=== PATIENT | female | born 1935 | race Caucasian/White ===

== ENCOUNTER 2021-07-12 20:20 | Emergency (ER) | payer MEDICARE, MEDICAID, SELFPAY ==
--- NOTE | ~2021-07-12 | XR_ITS ---
EXAMINATION: XR chest 1V INDICATION: Wheezing TECHNIQUE: AP view of the chest is obtained. COMPARISON: 05/21/2019 FINDINGS: There is severe emphysema. The lungs are free of acute opacities. There is no pleural effus ion or pneumothorax. The cardiomediastinal silhouette is stable. IMPRESSION: 1. No acute cardiopulmonary abnormality. Reviewed, dictated and finalized at location F. BING ASSEMBLER
--- NOTE | ~2021-07-12 | XR_ITS ---
EXAMINATION: XR sacrum coccyx min 2V INDICATION: Pelvic pain after fall TECHNIQUE: Three views of the sacrum and coccyx are obtained. COMPARISON: 05/21/2019 FINDINGS: The bones are osteopenic which limits the sensitivity for fracture however none is seen. Joey ne alignment is normal. There are phleboliths of the pelvis. 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 Calcified atherosclerosis is noted. IMPRESSION: 1. No fracture identified, sensitivity limited by osteopenia. Reviewed, dictated and finalized at location F. Y POSITION OFFICER
--- NOTE | ~2021-07-12 | CT_ITS ---
EXAMINATION: CT cervical spine wo con DATE: 07/12/2021 20:55 INDICATION: Head injury TECHNIQUE: Computed tomography (CT) of the cervical spine was performed without intravenous contrast. The dose-length product (DLP) was 327.49 mGy-cm. Automated exposure control and iterative reconstruc tion technique were employed. COMPARISON: 05/21/2019 FINDINGS: There is no acute fracture, dislocation, or subluxation. There is moderate loss of interver tebral disc space height at C5-6. The odontoid is intact. The prevertebral soft tissues are normal. T here is mild multilevel facet and uncovertebral joint osteoarthritis. There is a chronic mild abad merritt fracture of C7. There is severe emphysema visualized lung apices. IMPRESSION: 1. Mild cervical spondylosis and chronic mild compression fracture of C7 without acute findings or si gnificant interval change. Reviewed, dictated and finalized at location F. IT BALANCE SPECIALIST IMPRESSION: 1. Mild cervical spondylosis and chronic mild compression fracture of C7 withou t acute findings or significant interval change.
--- NOTE | ~2021-07-12 | CT_ITS ---
EXAMINATION: CT brain wo con INDICATION: Head injury COMPARISON: 05/21/2019 TECHNIQUE: Standard unenhanced head CT. The dose-length product (DLP) was 605.33 mGy-cm. The mA was a djusted according to patient size. Iterative reconstruction technique was employed. FINDINGS: There is no acute intraparenchymal hemorrhage. No evidence of mass lesion. No evidence of a cute infarction. 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 There is moderate periventricular and subcortical hypodensity probably related to small vessel ischemic dis ease. There is mild prominence of the sulci and ventricles related to cerebral atrophy. Intracranial calcified cerebral atherosclerosis is noted. There are no extra-axial collections. There is no mass e ffect or midline shift. Changes in the globes are likely from ocular lens surgery. There is mild muco karine thickening of the paranasal sinuses. IMPRESSION: 1. No acute intracranial abnormality. 2. Age related findings. Reviewed, dictated and finalized at location F. CTOR CORPORATE SECURITY
[2021-07-12 20:31] VITALS: BP 118/78; PULSE 95; RESP 22; TEMP 36.4; O2SAT 93
--- NOTE | 2021-07-12 21:34 | ECG_ITS ---
Measurements Intervals [place] Rate: 87 P: 78 TN: 224 QRS: 63 QRSD: 100 T: 60 QT: 364 QTc: 440 Interpretive Statements SINUS RHYTHM WITH FIRST DEGREE AV BLOCK POSSIBLE LEFT ATRIAL ENLARGEMENT BASELINE ARTIFACT- I, II, III, AVR, AVL, AVF, V1-V6 ABNORMAL ECG Electronically Signed On 07-13-2021 6:30:16 INFANTRY ASSAULTMAN by Thomas Cho D.O.
--- NOTE | 2021-07-12 21:40 | ED.FALL ---
HPI - Fall General Chief Complaint: Fall Stated Complaint: altered mental status after fall Time Seen by Provider: 07/12/21 21:03 Source: patient and RN notes reviewed Mode of arrival: EMS Limitations: no limitations History of Present Illness HPI Narrative: This is an 85 year old female with history of COPD, hypertension who presents for evaluation of fall. Patient states she was getting up out of bed to go to restroom. She was reports she had her hand on bedside table, and the table moved. Once the table moved this caused her to fall down onto her buttocks. She reports she lightly fell back and hit her head. She denies headache, dizziness, nausea or vomiting. She denies neck pain and she has chronic back pain. She reports bilateral buttock pain from her fall. Patient is on oxygen and she reports her doctor placed her on oxygen 2 days ago. She denies chest pain or shortness of breath at this time. Related Data Home Medications Medication Instructions Recorded Confirmed Creon 1 cap PO AC 05/02/19 05/21/19 Spiriva with HandiHaler 1 cap INHALATION DAILY 05/02/19 05/21/19 acetaminophen 650 mg PO Q4H PRN 05/02/19 05/21/19 albuterol sulfate 2.5 mg INHALATION Q4H PRN 05/02/19 05/21/19 aspirin [Aspir-81] 81 mg PO AC 05/02/19 05/21/19 calcium polycarbophil [Fiber-Lax] 625 mg PO DAILY 05/02/19 05/21/19 duloxetine 60 mg PO DAILY 05/02/19 05/21/19 guaifenesin [Mucus Relief] 400 mg PO DAILY 05/02/19 05/21/19 lisinopril 20 mg PO DAILY 05/02/19 05/21/19 omeprazole 40 mg PO DAILY 05/02/19 05/21/19 potassium chloride 40 meq PO DAILY 05/02/19 05/21/19 furosemide 20 mg PO DAILY 05/21/19 05/21/19 Allergies Allergy/AdvReac Type Severity Reaction Status Date / Time amoxicillin Allergy Unresponsiv Verified 05/21/19 20:59 e clavulanic acid Allergy Unknown Verified 05/21/19 20:59 [From Augmentin] Penicillins Allergy Unknown Verified 05/21/19 20:59 streptomycin Allergy Unresponsiv Verified 05/21/19 20:59 e Review of Systems Review of Systems: All systems reviewed & are unremarkable except as noted in HPI and below PMFSH Past Medical History Medical History (Updated 07/13/21 @ 01:46 by Joslyn Clemens MD) Anxiety Arthritis Chronic back pain COPD (chronic obstructive pulmonary disease) Dementia Depression Diverticulitis Gastric ulcer GERD (gastroesophageal reflux disease) History of blood transfusion Hyperlipidemia Hypertension Kidney stones Tuberculosis Upper GI bleed UTI (urinary tract infection) Surgical History Surgical History History of appendectomy History of cataract surgery History of cholecystectomy History of colonoscopy with polypectomy History of esophagogastroduodenoscopy (EGD) History of hysterectomy History of tubal ligation Hx of tonsillectomy Family History Family History Mother History of hysterectomy Uterine cancer at age 44 Father Congestive heart failure age 57 Sibling Polio Sibling , brother Carcinoma of colon Sibling Hypertension Social History Social History Social History: Patient is . She currently resides at [facility]. Her eldest son, Deondre Peace, is her POA. She is a full code. Smoking packs per day: 3 Smoking cigarettes per day: 60.0 Years smoked: 64 Smoking pack-years: 192.00 Smoking status: Former smoker Second hand tobacco smoke exposure: Yes Alcohol intake: never Substance use: never Gender identity (if verbalized by the patient): Female Spiritual care concerns: No Exam Const: General: no acute distress and alert Nutritional Appearance: thin Orientation/consciousness: patient oriented x3 HENMT: Head: normocephalic and atraumatic Face and sinus: face symmetric Mouth: Yes Normal
[2021-07-12 22:14] LABS: Basophils Absolute Auto 0.1 K/mm3 (0.0-0.1); Basophils Percent Auto 0.6 % (0.2-1.2); Eosinophils Absolute Auto 0.3 K/mm3 (0-0.3); Eosinophils Percent Auto 2.5 % (0-4.4); Hematocrit 38.8 % (37.0-47.0); Hemoglobin 12.4 g/dL (12.0-15.0); Immature Granulocyte Absolute 0.04 K/mm3 (0.00-0.031); Immature Granulocyte Percent A 0.3 % (0-0.5); Lymphocytes Absolute Auto 2.24 K/mm3 (0.9-3.2); Lymphocytes Percent Auto 18.2 % (18.3-44.2); Mean Corpuscular Hemoglobin 28.9 pg (26-34); Mean Corpuscular Volume 90.4 fl (80-100); Mean Platelet Volume 8.7 fl (7.4-10.4); Monocytes Absolute Auto 0.8 K/mm3 (0.1-0.6); Monocytes Percent Auto 6.7 % (2.6-8.5); Neutrophils Absolute Auto 8.8 K/mm3 (1.3-6.7); Neutrophils Percent Auto 71.7 % (45.5-73.1); Platelet Count Result 253 k/mm3 (150-375); Red Blood Count 4.29 M/mm3 (4.2-5.4); Red Cell Distribution Width 15.3 % (11.5-14.5); White Blood Count 12.3 K/mm3 (4.5-10.0)
[2021-07-12 22:24] LABS: Alveolar/Arterial O2 Gradient 108.7 mmHg; Base Excess ABG 2.2 mEq/l (+/-2.0); Carboxyhemoglobin 0.7 % THb (0-2.0); Device NASAL CANNULA; Fractional Inspired Oxygen 32 %; HCO3 ABG 27.1 mEq/l (22.0-26.0); Methemoglobin ABG 0.3 %THb (0-1.5); Modified Allen's Test Pass; Oxygen Content ABG 16.5 %vol (16.0-22.0); Oxygen Saturation ABG 93.9 % (95.0-100.0); Oxyhemoglobin 92.4 % THb (90.0-100.0); PCO2 ABG 43.6 mmHg (35.0-45.0); PO2 ABG 68.5 mmHg (80.0-100.0); PO2 FiO2 Ratio Arterial Blood 2.14 %; Reduced Hemoglobin 6.6 %THb (0-5.0); Site Drawn LEFT RADIAL; Total Hemoglobin 12.7 g/dL (12.0-18.0); pH ABG 7.412 (7.350-7.450)
[2021-07-12 22:25] LABS: Alanine Aminotransferase 14 U/L (4-35); Albumin Level 3.9 g/dL (3.5-5.1); Alkaline Phosphatase 138 U/L (38-126); Anion Gap 8 mmol/L (8-16); Aspartate Amino Transferase 20 U/L (14-36); Bilirubin,Total 0.3 mg/dL (0.2-1.3); Blood Urea Nitrogen 24 mg/dL (7-17); Calcium 9.9 mg/dL (8.4-10.2); Carbon Dioxide 32 mmol/L (22-30); Chloride 100 mmol/L (98-107); Estimated CRCL calculation 33 ml/min; Estimated Glomerular Filt Rate 53; Glucose 136 mg/dL (65-110); Potassium 4.6 mmol/L (3.4-5.0); Sodium 140 mmol/L (137-145)
[2021-07-12] MEDS: ALBUTEROL SULFATE (*SP) INHALER 4 PUFF INHALATION (22:40)
[2021-07-12 23:19] VITALS: BP 110/68; PULSE 97; RESP 18; O2SAT 94
[2021-07-13 00:31] LABS: Add Urine Microscopic? YES; Appearance Urine Cloudy (Clear); Bilirubin Urine Negative (Negative); Blood Urine Negative (Negative); Color Urine Yellow (Yellow); Glucose Urine UA Negative (Negative); Ketones Urine Negative (Negative); Leukocyte Esterase Ur Trace LEU/UL (Negative); Mucus Urine Rare /lpf; Nitrate Urine Negative (Negative); Protein Urine Negative (Negative); Specific Grav Ur 1.018 (1.001-1.035); Squamous Epithelial Cell Urine Few /hpf (Few); Urobilinogen Urine Negative mg/dL (<2.0)
[2021-07-13 01:32] VITALS: BP 106/73; PULSE 85; RESP 18; O2SAT 95
--- NOTE | 2021-07-13 02:12 | PC.NURSE ---
made contact with [facility] to transfer pt to [phone] (trip # [phone])
--- NOTE | 2021-07-13 02:17 | PC.NURSE ---
report to thi suero at [facility]
--- NOTE | 2021-07-13 04:57 | PC.NURSE ---
sleeping resp even unlabored waiting transport
--- NOTE | 2021-07-13 05:48 | PC.NURSE ---
bishop has arrived
[2021-07-13 06:05] VITALS: BP 127/91; PULSE 103; RESP 20; O2SAT 93
== END 2021-07-13 06:00 ==
PROVIDERS: Emergency Provider General Practice
DX: S09.90XA Unspecified injury of head, initial encounter (principal); S39.92XA Unspecified injury of lower back, initial encounter; N30.90 Cystitis, unspecified without hematuria; J44.1 Chronic obstructive pulmonary disease with (acute) exacerbation; M85.88 Other specified disorders of bone density and structure, other site; M47.812 Spondylosis without myelopathy or radiculopathy, cervical region; M48.52XA Collapsed vertebra, not elsewhere classified, cervical region, initial encounter for fracture; W18.39XA Other fall on same level, initial encounter
CPT/HCPCS: 36415; 36600; 70450; 71045; 72125; 72220; 80053; 81001; 82375; 82805; 83050; 85025; 87086; 87088; 93005; 99284; A9270

== ENCOUNTER 2022-06-17 15:08 | Inpatient (IN) | payer MEDICARE, MEDICAID, SELFPAY ==
[2022-06-17] VITALS (15 sets, daily range): BP systolic 82–135; BP diastolic 57–86; PULSE 88–118; RESP 16–32; TEMP 36.1–36.6; O2SAT 64–98; BMI 23.9
--- NOTE | ~2022-06-17 | CT_ITS ---
EXAMINATION: CTA chest PE protocol DATE: 06/18/2022 15:48 INDICATION: cp elevated d dimer TECHNIQUE: Computed tomography angiography (CTA) of the chest was performed with 100 mL Omnipaque-350 intravenous contrast timed to evaluate the pulmonary arteries. Coronal maximum intensity projection 3D-reconstructions were created by the technologist. The dose-length product (DLP) was 217.71 mGy-cm. Automated exposure control and iterative reconstruction technique were employed. COMPARISON: None. FINDINGS: Lung parenchyma and airways: Emphysematous and senescent change. Scattered granulomatous and inflamma tory opacities. Bibasilar atelectasis. Pleura: Small bilateral pleural fluid collections. Thoracic inlet, axillae and chest wall: Unremarkable. 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 Saccular aneurysms of the dilated descending aorta directed posteri ezequiel and medially, also displaying interval enlargement. Focal hyperdensities in the medially directe d saccular aneurysm may reflect calcification versus thrombus fissuring. Extensive intramural thrombu s in the arch and descending thoracic aorta. Mediastinum: Central pulmonary artery dilation as can be seen with pulmonary arterial hypertension. Heart and pericardium: Mild cardiomegaly. Trace pericardial fluid. Coronary artery calcifications: Moderate. Upper abdomen: No significant finding. Bones: No acute osseous finding. Pulmonary arteries: Study quality: Motion artifact obscures the lower lobe arteries. No pulmonary emb des detected. IMPRESSION: 1. Significant interval enlargement of the fusiform arch and saccular descending thoracic aortic aneu rysms. Presumed thrombus fissuring in at least the arch aneurysm, concerning for impending rupture (t his could be confirmed with noncontrast CT of the chest if that would impact management). 2. Motion limited examination of the lower lobe arteries. Within that constraint, no definite CT evid ence of acute central or occlusive segmental pulmonary embolus. Results reported telephonically to Carisa Dutton RN by Dr. Odell at 4:20 PM on 06/18/2022. Reviewed, dictated and finalized at location K. OMER EXPERIENCE RETAIL CLERK IMPRESSION: 1. Significant interval enlargement of the fusiform arch and saccular descendin g thoracic aortic aneurysms. Presumed thrombus fissuring in at least the arch a neurysm, concerning for impending rupture (this could be confirmed with noncont rast CT of the chest if that would impact management). 2. Motion limited examination of the lower lobe arteries. Within that constrain t, no definite CT evidence of acute central or occlusive segmental pulmonary em bolus. Results reported telephonically to Carisa Dutton RN by Dr. Odell at 4:20 PM on 06/18/2022.
--- NOTE | ~2022-06-17 | XR_ITS ---
Portable chest x-ray Comparison: 06/18/2022 Clinical History: Hypoxia Findings: Small bilateral pleural effusions are present. There is diffuse interstitial prominence. Cardiomediastinal silhouette is stable. Bones and soft tissues are unremarkable. Impression: Small bilateral pleural effusions. Diffuse chronic interstitial disease versus COPD or interstitial pulmonary edema. Reviewed, dictated and finalized at [facility]. NER BOX Impression: Small bilateral pleural effusions. Diffuse chronic interstitial disease versus COPD or interstitial pulmonary janet mcfadden
--- NOTE | ~2022-06-17 | XR_ITS ---
Portable chest x-ray Comparison: 06/17/2022 Clinical History: Shortness of breath Findings: There is probable COPD with associated mild bibasilar interstitial prominence. Several chantell cified granulomas are noted bilaterally. Cardiomediastinal silhouette is stable. Bones and soft tiss ues are unremarkable. Impression: Probable COPD with associated mild bibasilar interstitial prominence. Correlate for mild bibasilar in terstitial edema. Evidence of prior granulomatous disease. Reviewed, dictated and finalized at location M. STANT DIRECTOR OF PLANT OPERATIONS Impression: Probable COPD with associated mild bibasilar interstitial prominence. Correlate for mild bibasilar interstitial edema. Evidence of prior granulomatous disease.
--- NOTE | ~2022-06-17 | CT_ITS ---
EXAMINATION: CT diagnostic chest wo con DATE: 06/18/2022 17:35 INDICATION: Thoracic Aortic Aneurysm, concern for rupture TECHNIQUE: Computed tomography (CT) of the chest was performed with 100 mL Omnipaque-350 intravenous contrast. Automated exposure control and iterative reconstruction technique were employed. The dose-l ength product was 157.20 mGy-cm. COMPARISON: CT chest with contrast, performed on the same date. FINDINGS: Noncontrast images clearly demonstrate persistent and unchanged hyperdensity within the intramural th rombus of the fusiform thoracic aortic arch aneurysm as well as the medially directed saccular descen ding thoracic aortic aneurysm. There has been short-term slight interval increase in size of the fusi form thoracic aneurysm, now measuring up to a maximum transverse diameter of 9.2 cm. IMPRESSION: No definite evidence of thrombus fissuring, however there has been short-term interval increase in an eurysm size at the aortic arch, which is very concerning for impending rupture. Results reported telephonically to Dr. Grant by Dr. Odell at 5:52 PM on 06/18/2022. Reviewed, dictated and finalized at location K. ICAL SCIENCES PROFESSOR IMPRESSION: No definite evidence of thrombus fissuring, however there has been short-term i nterval increase in aneurysm size at the aortic arch, which is very concerning for impending rupture. Results reported telephonically to Dr. Grant by Dr. Odell at 5:52 PM on 05/24.
--- NOTE | ~2022-06-17 | XR_ITS ---
EXAMINATION: XR chest 2V Exam Date/Time: 06/17/2022 15:28 PIPE SUPERVISOR HISTORY: cough, sob Comparison: 07/12/2021 and 05/02/2019. RESULT: Lines, tubes, and devices: None. Lungs and pleura: Increased reticular opacities, overlying more chronic appearing reticulonodular op acities and senescent changes. Old granulomatous disease. Cardiomediastinal silhouette: Grossly stable appearing fusiform and saccular thoracic aortic aneurys ms. Other: No acute osseous or upper abdominal finding. IMPRESSION: Mild interstitial edema versus bronchiolitis. Reviewed, dictated and finalized at location K. SUPERVISOR
--- NOTE | ~2022-06-17 | XR_ITS ---
Right foot Technique: AP, oblique, and lateral views were obtained. Clinical History: Lateral foot wound Findings: No acute fracture or dislocation is seen. Osseous alignment is anatomic. Joint spaces are p reserved without erosive or degenerative change. There is lobulated hyperdense material at the latera l aspect of the mid to hindfoot, at the approximate level of the calcaneocuboid joint.. Impression: Lobulated hyperdense material at the lateral aspect of the mid to hindfoot, as detailed above. Unclea r whether this represents foreign body versus cement or some sort of packing material. With physical exam and treatment/clinical history. Reviewed, dictated and finalized at location . WORKER DAIRY Impression: Lobulated hyperdense material at the lateral aspect of the mid to hindfoot, as detailed above. Unclear whether this represents foreign body versus cement or s ome sort of packing material. With physical exam and treatment/clinical history .
--- NOTE | 2022-06-17 15:22 | ECG_ITS ---
Measurements Intervals [place] Rate: 111 P: 75 WA: 214 QRS: 81 QRSD: 93 T: 63 QT: 307 QTc: 418 Interpretive Statements SINUS TACHYCARDIA WITH FIRST DEGREE AV BLOCK BASELINE ARTIFACT LOW-VOLTAGE QRS IN LIMB LEADS POSSIBLE LEFT ATRIAL ENLARGEMENT BORDERLINE ECG COMPARED TO ECG 07/12/2021 23:34:50 HEART RATE HAS INCREASED Electronically Signed On 06-17-2022 17:07:50 CONDENSER TUBE TENDER by Kostas Burden M.D.
--- NOTE | 2022-06-17 15:56 | ED.CHESTPAIN ---
HPI - Chest Pain General Chief Complaint: Chest Pain Stated Complaint: chest pain Time Seen by Provider: 06/17/22 15:47 History of Present Illness HPI narrative: Pt presents with episode of chest tightness today that lasted about two hours and resolved on arrival to ER. Pt is currently pain free. Pt says the pain radiated down left arm and she was SOB. Pt has no cardiac history. Related Data Home Medications Medication Instructions Recorded Confirmed acetaminophen 325 mg capsule 650 mg PO Q4H PRN pain 05/02/19 05/21/19 albuterol sulfate 2.5 mg/3 mL 2.5 mg inhalation Q4H PRN 05/02/19 05/21/19 (0.083 %) solution for nebulization Shortness Of Breath Or Wheezing aspirin 81 mg tablet,delayed 81 mg PO AC 05/02/19 05/21/19 release (Aspir-) calcium polycarbophil 625 mg 625 mg PO DAILY 05/02/19 05/21/19 tablet (Fiber-Lax) duloxetine 60 mg capsule,delayed 60 mg PO DAILY 05/02/19 05/21/19 release guaifenesin 400 mg tablet (Mucus 400 mg PO DAILY 05/02/19 05/21/19 Relief) [id number]-[id number] 1 cap PO AC 05/02/19 05/21/19 6,000-19,000-30,000 unit capsule,delayed rel (Creon) lisinopril 20 mg tablet 20 mg PO DAILY 05/02/19 05/21/19 omeprazole 40 mg capsule,delayed 40 mg PO DAILY 05/02/19 05/21/19 release potassium chloride 20 mEq 40 meq PO DAILY 05/02/19 05/21/19 tablet,extended release tiotropium bromide 18 mcg capsule 1 cap inhalation DAILY 05/02/19 05/21/19 with inhalation device (Spiriva with HandiHaler) furosemide 20 mg tablet 20 mg PO DAILY 05/21/19 05/21/19 Allergies Allergy/AdvReac Type Severity Reaction Status Date / Time amoxicillin Allergy Unresponsiv Verified 06/17/22 16:03 e clavulanic acid Allergy Unknown Verified 06/17/22 16:03 [From Augmentin] Penicillins Allergy Unknown Verified 06/17/22 16:03 streptomycin Allergy Unresponsiv Verified 06/17/22 16:03 e Review of Systems Review of Systems: All systems reviewed & are unremarkable except as noted in HPI and below PMFSH Past Medical History Medical History Aneurysm of thoracic aorta Anxiety Arthritis Chronic back pain Chronic obstructive pulmonary disease Chronic respiratory failure with hypoxia Dementia Depression Diverticulitis Gastric ulcer Gastroesophageal reflux 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 History of blood transfusion Hyperlipidemia Hypertension Kidney stones Tuberculosis Surgical History Surgical History History of appendectomy History of cataract surgery History of cholecystectomy History of colonoscopy with polypectomy History of esophagogastroduodenoscopy (EGD) History of hysterectomy History of tonsillectomy History of tubal ligation Family History Family History Mother History of hysterectomy Uterine cancer at age 44 Father Congestive heart failure age 57 Sibling Polio Sibling , brother Carcinoma of colon Sibling Hypertension Social History Social History (Updated 06/17/22 @ 18:17 by Bruna De Anda PA-C) Social History: 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 Code status: Full code. Smoking packs per day: 3 Smoking cigarettes per day: 60.0 Years smoked: 64 Smoking pack-years: 192.00 Smoking status: Former smoker Second hand tobacco smoke exposure: Yes Alcohol intake: never Substance use: never Additional living arrangements comments: Resident at [facility]. Additional occupation/education comments: Retired. Spiritual care concerns: No Exam Const: General: healthy appearing Limitations: no limitations Neck: Neck: normal visual inspection Chest: Chest palpation & inspection: normal inspection of the chest Resp: Effort & Inspection: normal respiratory effort Auscultatio
[2022-06-17 16:06] LABS: Basophils Absolute Auto 0.1 K/mm3 (0.0-0.1); Basophils Percent Auto 0.5 % (0.2-1.2); Eosinophils Absolute Auto 0.4 K/mm3 (0-0.3); Hematocrit 35.2 % (37.0-47.0); Hemoglobin 11.1 g/dL (12.0-15.0); Immature Granulocyte Absolute 0.03 K/mm3 (0.00-0.031); Immature Granulocyte Percent A 0.3 % (0-0.5); Lymphocytes Absolute Auto 1.86 K/mm3 (0.9-3.2); Lymphocytes Percent Auto 15.6 % (18.3-44.2); Mean Corpuscular HGB Conc 31.5 g/dl (32-36); Mean Corpuscular Hemoglobin 29.7 pg (26-34); Mean Corpuscular Volume 94.1 fl (80-100); Mean Platelet Volume 9.2 fl (7.4-10.4); Monocytes Percent Auto 8.7 % (2.6-8.5); Neutrophils Absolute Auto 8.6 K/mm3 (1.3-6.7); Neutrophils Percent Auto 71.9 % (45.5-73.1); Platelet Count Result 228 k/mm3 (150-375); Red Blood Count 3.74 M/mm3 (4.2-5.4); Red Cell Distribution Width 16.4 % (11.5-14.5); White Blood Count 11.9 K/mm3 (4.5-10.0)
[2022-06-17 16:10] LABS: INR 1.1; Prothrombin Time 13.7 Seconds (11.1-14.7)
[2022-06-17 16:11] LABS: Alanine Aminotransferase 17 U/L (6-35); Albumin Level 3.5 g/dL (3.5-5.1); Alkaline Phosphatase 108 U/L (38-126); Anion Gap 5 mmol/L (8-16); Aspartate Amino Transferase 18 U/L (14-36); Bilirubin,Total 0.5 mg/dL (0.2-1.3); Blood Urea Nitrogen 25 mg/dL (7-17); Calcium 8.8 mg/dL (8.4-10.2); Carbon Dioxide 28 mmol/L (22-30); Chloride 105 mmol/L (98-107); Estimated CRCL calculation 26 ml/min; Estimated Glomerular Filt Rate 43; Glucose 127 mg/dL (65-110); Lipase 21 U/L (23-300); Partial Thromboplastin Time 36.7 SECONDS (22.3-36.8); Potassium 4.8 mmol/L (3.4-5.0); Sodium 138 mmol/L (137-145)
[2022-06-17] MEDS: SODIUM CHLORIDE 0.9% IV 1,000 ML 999 ML IV CONT (16:15)
[2022-06-17 16:22] LABS: Troponin I < 0.012 ng/mL (0.000-0.034)
--- NOTE | 2022-06-17 17:45 | PM.IMHP ---
H&P: HPI History of Present Illness Date/Time: 06/17/22 17:45 Chief Complaint: Chest pain and low oxygen saturations. Narrative: This is an 86-year-old female with dementia, COPD, chronic respiratory failure on oxygen, hypertension, hyperlipidemia, and anxiety who presented to the emergency department via EMS from [place] for evaluation of chest pain and low oxygen saturations. She is a fair historian but due to her dementia she has some short-term memory loss and as such some of the following is supplemented via a review of her electronic medical records. The patient reports she has not been feeling well for a couple of weeks and she tells me that she had the flu recently but cannot give specific dates. Since that time she has continued to have a cough productive of clear phlegm and a bit more short of breath with exertion than usual. She also reports a poor appetite and states she has not had good oral intake for several days at least. Additionally she endorses urinary frequency and dysuria and she also mentions a sore on the lateral aspect of the right foot which has been present for couple of weeks. It is exquisitely painful to palpation and has become painful with weight-bearing as well. She does not know exactly how it occurred but tells me it started as a small blood blister though it has continued to increase in size and is now draining. In any event, she developed a ?grabbing? pain in the mid chest area which radiated to the left shoulder and this is what prompted her trip to the ER. EKG on arrival shows sinus tachycardia without acute ST segment changes. Her initial troponin was negative. Other labs were significant for an elevated BUN and creatinine from baseline. Blood pressure has been as low as 82/57 however it has improved with IV fluids. She is being admitted in this setting for IV fluid rehydration and further evaluation of her chest pain and right foot pain. She denies fever, chills, sweats, sore throat, pleuritic pain, palpitations, syncope, near syncope, nausea, vomiting, diarrhea, and dysuria. Review of Systems Review of Systems: Twelve systems were reviewed. She denies fever, chills, sweats. She did have some body aches and she had the flu but that has improved. No significant headache. She denies sinus congestion but endorses a mild sore throat. She is not currently having any chest pain. She denies palpitations and pleuritic pain. Denies orthopnea. No lower extremity edema, calf pain, or tenderness. She has no known history of venous thromboembolism. Except as documented, all other systems were reviewed and are negative. 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 History of blood transfusion Hyperlipidemia Hypertension Kidney stones Tuberculosis Surgical History Surgical History History of appendectomy History of cataract surgery History of cholecystectomy History of colonoscopy with polypectomy History of esophagogastroduodenoscopy (EGD) History of hysterectomy History of tonsillectomy History of tubal ligation Family History Family History Mother History of hysterectomy Uterine cancer at age 44 Father Congestive heart failure age 57 Sibling Polio Sibling , brother Carcinoma of colon Sibling Hypertension Social History Social History Social History: Healthcare power of regulatory attorney: Deondre Sterling, son. Code status: Full code. Smo
[2022-06-17] MEDS: LACTATED RINGERS 1,000 ML 125 ML IV CONT (17:58)
[2022-06-17 18:50] LABS: Influenza A QL RT-PCR Negative (Negative); Influenza B QL RT-PCR Negative (Negative); SARS-CoV-2 RNA PCR Negative
[2022-06-17 19:23] LABS: Troponin I < 0.012 ng/mL (0.000-0.034)
--- NOTE | 2022-06-17 20:56 | ADMGEN ---
This patient, Joan Peace, was admitted to IMU Room 206-02 at 2054. Patient/family oriented to hospital policies and general routines including ID bracelet, bed and alarms, visiting hours, pain management, procedures, bathroom and other care routines, personal items, smoking policy, room service/diet, and visiting hours. Information on how to activate the Rapid Response Team has been discussed. Patient/Family are encouraged to report perceived risks to care and to ask questions if they do not understand what they are told or what they should do.
[2022-06-17 23:03] LABS: Troponin I < 0.012 ng/mL (0.000-0.034)
[2022-06-18] VITALS (24 sets, daily range): BP systolic 96–164; BP diastolic 54–88; PULSE 84–115; RESP 16–24; TEMP 36.2–36.9; O2SAT 91–98
--- NOTE | 2022-06-18 03:40 | ECG_ITS ---
Measurements Intervals [place] Rate: 105 P: 68 MD: 225 QRS: 73 QRSD: 96 T: 63 QT: 303 QTc: 401 Interpretive Statements SINUS TACHYCARDIA WITH FIRST DEGREE AV BLOCK WITH OCCASIONAL ECTOPIC PREMATURE COMPLEXES BASELINE ARTIFACT POSSIBLE LEFT ATRIAL ENLARGEMENT BORDERLINE ECG COMPARED TO ECG 06/17/2022 15:28:07 NO SIGNIFICANT CHANGES Electronically Signed On 06-18-2022 17:48:01 POLICE PATROL OFFICER by Kostas Burden M.D.
[2022-06-18] MEDS: IPRATROPIUM BR 0.02% INH SOLN 0.5 MG/2.5 ML VIAL INHALATION ×4 (04:09→19:50)
[2022-06-18] MEDS: ALBUTEROL SULFATE NEB 2.5 MG/3 ML INH INHALATION ×4 (04:09→19:50)
[2022-06-18] MEDS: ALPRAZolam (*CRX) 0.25 MG TABLET PO ×3 (04:12→18:38)
[2022-06-18] MEDS: ACETAMINOPHEN 325 MG TABLET 650 MG PO (04:13)
--- NOTE | 2022-06-18 04:19 | PC.NURSE ---
patient was asleep and woken up for vitals. patient then started yelling that she can't breathe and needs air. patients o2 sat did decrease into the 80's and o2 level was then raised to 5l nc. patient was c/o pain in rt ankle/back/butt/lt shoulder/ foot.dr jones was in the room and ordered chest x-ray, ekg. patient was then given a respiratory treatment and her missed dose of xanax and then some tylenol for pain. patient calmed down as soon as she got her medication and stopped yelling.
[2022-06-18 05:06] LABS: Hematocrit 34.9 % (37.0-47.0); Mean Corpuscular HGB Conc 31.5 g/dl (32-36); Mean Corpuscular Hemoglobin 29.5 pg (26-34); Mean Corpuscular Volume 93.6 fl (80-100); Mean Platelet Volume 9.3 fl (7.4-10.4); Platelet Count Result 218 k/mm3 (150-375); Red Blood Count 3.73 M/mm3 (4.2-5.4); Red Cell Distribution Width 16.2 % (11.5-14.5); White Blood Count 11.5 K/mm3 (4.5-10.0)
[2022-06-18 05:38] LABS: D Dimer 3.36 ug/mL (<0.48)
[2022-06-18 05:47] LABS: Alanine Aminotransferase 17 U/L (6-35); Albumin Level 3.7 g/dL (3.5-5.1); Alkaline Phosphatase 114 U/L (38-126); Anion Gap 8 mmol/L (8-16); Aspartate Amino Transferase 18 U/L (14-36); Bilirubin,Total 0.6 mg/dL (0.2-1.3); Blood Urea Nitrogen 16 mg/dL (7-17); Calcium 8.8 mg/dL (8.4-10.2); Carbon Dioxide 25 mmol/L (22-30); Chloride 106 mmol/L (98-107); Estimated CRCL calculation 38 ml/min; Estimated Glomerular Filt Rate > 60; Glucose 113 mg/dL (65-110); Magnesium 1.9 mg/dL (1.6-2.3); Potassium 4.1 mmol/L (3.4-5.0); Sodium 139 mmol/L (137-145)
[2022-06-18] MEDS: FLUTICASONE/SALMETEROL 115-21 MCG INHALER 1 PUFF 2 PUFF INHALATION ×2 (08:44→19:51)
[2022-06-18] MEDS: DULoxetine HCL 30 MG CAPSULE.DR PO (08:56)
[2022-06-18] MEDS: LIPASE/AMYLASE/PROTEASE 12,000 UNITS CAP 1 CAP PO (08:56)
[2022-06-18] MEDS: ASPIRIN 81 MG ENTERIC TABLET PO (08:56)
[2022-06-18] MEDS: PANTOPRAZOLE 40 MG TABLET PO (08:56)
[2022-06-18] MEDS: POTASSIUM CHLORIDE 20 MEQ TABLET.ER 40 MEQ PO (08:56)
[2022-06-18] MEDS: calcium polycarbophiL 625 MG TABLET PO (08:56)
[2022-06-18] MEDS: FAMOTIDINE 20 MG TABLET PO ×2 (08:57→18:40)
[2022-06-18] MEDS: ENOXAPARIN 30 MG/0.3 ML SYRINGE SUB-Q (08:57)
[2022-06-18] MEDS: polyethylene glycoL 3350 17 GM POWD.PACK PO (08:57)
[2022-06-18] MEDS: guaiFENesin 12 HR 600 MG TABCR PO ×2 (08:57→21:01)
[2022-06-18] MEDS: HYDROcodone/acetaminophen (*CRX) 5-325 MG TABLET 1 TAB PO ×3 (09:21→18:38)
[2022-06-18] MEDS: LACTATED RINGERS 1,000 ML 125 ML IV CONT (09:22)
--- NOTE | 2022-06-18 10:52 | PM.IMPN ---
Progress Note: A&P Assessment and Plan (1) Chest pain: Code(s): R07.9 - Chest pain, unspecified Status: Acute Assessment and Plan: She describes a grabbing pain in the mid chest radiating to the left shoulder. EKG did not demonstrate any acute ST segment changes and her initial troponin was negative. She had tenderness to palpation over the chest wall and may very well be musculoskeletal in etiology. Pulmonary embolism is considered though seems less likely by history. Continue to trend troponins. Echo ordered. Will also get a CT angio of the chest. (2) Acute kidney injury: Code(s): N17.9 - Acute kidney failure, unspecified Status: Acute Assessment and Plan: Most likely due to dehydration -improved (3) Chronic respiratory failure with hypoxia, on home oxygen therapy: Code(s): J96.11 - Chronic respiratory failure with hypoxia; Z99.81 - Dependence on supplemental oxygen Status: Acute Assessment and Plan: She is on 3 to 4 liters nasal cannula at baseline, currently requiring 5 liters. Again, pulmonary embolism is considered though seems less likely by her history. Consider CTA of the chest pending (4) Dehydration: Code(s): E86.0 - Dehydration Status: Acute Assessment and Plan: Plan is as detailed above. (5) Wound of right foot: Code(s): S91.301A - Unspecified open wound, right foot, initial encounter Status: Acute Assessment and Plan: Empiric vancomycin, pending wound culture. X-rays of that foot are pending. Wound nurse consulted. (6) Chronic obstructive pulmonary disease: Code(s): J44.9 - Chronic obstructive pulmonary disease, unspecified Status: Acute Assessment and Plan: No evidence of acute exacerbation. Continue inhalers and nebulizers as needed. (7) Hypertension: Qualifiers: Hypertension type: essential hypertension Qualified Code(s): I10 - Essential (primary) hypertension Code(s): I10 - Essential (primary) hypertension Status: Chronic Assessment and Plan: Blood pressures have been soft but have responded to IV fluids. Antihypertensives currently on hold. Subjective Date/time seen: 06/18/22 10:52 Patient complaining pain her foot. Otherwise she has no new complaints. Exam Narrative: General: Frail, mildly ill-appearing female supine in bed in no distress. Weight: 61.3 kilograms. BMI: 23.9. HEENT: PERRL, EOMI. Sclera anicteric. Dry mucous membranes. Oropharynx clear. She is very hard of hearing. Neck: Supple. No JVD or lymphadenopathy. 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 Respiratory: On baseline 3 liters nasal cannula. Respirations are nonlabored and she is speaking in full sentences. Lung sounds are diminished throughout with coarse crackles in the right mid and upper lung anteriorly. Chest: She has some reproducible tenderness to palpation over the anterior chest wall. Cardiovascular: Tachycardic with normal S1-S2. Gastrointestinal: Abdomen is soft, flat, nontender, nondistended with positive bowel sounds. Skin: Warm and dry. There is a raised, approximately 1.5 inch circular wound on the lateral aspect of the right foot with mild erythema and induration and central clearing with yellow crusted slough. Patient did not tolerate much probing. Extremities: No cyanosis, clubbing, or significant edema. Radial and pedal pulses intact. Neurological: Alert and oriented to name, age, date of , and place. She could not tell me the current year or name of the president. Cranial nerves 2-12 are grossly intact. No gross focal deficits to casual conversation. Psychiatric: Pleasant and cooperative with appropriate mood and affect. She is slightly forgetful. Objective Data Vital Signs Vital Signs: Vital Signs - 24 hr 12/
[2022-06-18] MEDS: LIPASE/AMYLASE/PROTEASE 12,000 UNITS CAP 2 CAP PO ×2 (12:41→18:39)
[2022-06-18] MEDS: LACTATED RINGERS 1,000 ML 75 ML IV CONT (18:41)
[2022-06-18] MEDS: SILVERGEL (ELTA) 45 ML 1 APPLIC TOPICAL (18:42)
--- NOTE | 2022-06-18 23:26 | ECHO_ITS ---
Patient Info Name: Joan Peace Age: 86 years : 1935 Gender: Female Ht: 63 in Wt: 135 lbs BSA: 1.66 m2 HR: 93 bpm BP: 164 / 88 mmHg Heart Rhythm: Sinus Rhythm Technical Quality: Fair Exam Date: 06/18/2022 12:29 PM Exam Location: [facility] Patient Status: Outpatient Admit Date: 06/17/2022 Staff Ordering Physician: Bruna De Anda PA-C Ski Lift Operator: Sugey Bautista RDCS Attending Provider: Jaleel Grant MD Referring Physician: Adilson RODRIGUEZ; Exam Type: CA echo doppler color flow Study Info Indications - chest pain, hypertension Complete two-dimensional, color flow and Doppler transthoracic echocardiogram is performed. Summary 1. Complete two-dimensional, color flow and Doppler transthoracic echocardiogram is performed. 2. Technically difficult study with limited views. 3. Left ventricular chamber dimension is normal. 4. Left ventricular systolic function is normal, estimated at 55-60%. 5. There is mildly increased left ventricular wall thickness. 6. Left ventricular septal wall motion is abnormal with septal motion related to bundle branch block. 7. The left ventricular diastolic function is grade I diastolic dysfunction. 8. There is mild to moderate aortic valve stenosis with a peak velocity of 180 cm/s, mean gradient of 7 mmHg, and aortic valve area of 1.3 cm2. 9. There is trace tricuspid valve regurgitation. 10. Moderate pulmonary hypertension, estimated pulmonary arterial systolic pressure is 46 mmHg. Left Ventricle Left ventricular chamber dimension is normal. Left ventricular systolic function is normal, estimated at 55-60%. There is mildly increased left ventricular wall thickness. Left ventricular septal wall motion is abnormal with septal motion related to bundle branch block. The left ventricular diastolic function is grade I diastolic dysfunction. Technically difficult study with limited views. Right Ventricle Right ventricular chamber dimension is normal. Right ventricular systolic function is normal. Left Atria Left atrial chamber dimension is normal. Right Atria Right atrial chamber dimension is normal. Aortic Valve The aortic valve is probable trileaflet. There is mild to moderate aortic valve stenosis with a peak velocity of 180 cm/s, mean gradient of 7 mmHg, and aortic valve area of 1.3 cm2. There is mild aortic valve calcification. Pulmonic Valve The pulmonic valve is not well visualized. There is mild pulmonic regurgitation. Mitral Valve The mitral valve has thickened leaflets. The mitral valve annulus is moderately calcified. Tricuspid Valve The tricuspid valve leaflets are normal. There is trace tricuspid valve regurgitation. Moderate pulmonary hypertension, estimated pulmonary arterial systolic pressure is 46 mmHg. Pericardium/Pleural The pericardium appears normal. There is small pericardial effusion with fibrinous material within the pericardial space. Inferior Vena Cava Normal inferior vena cava with <50% collapse upon inspiration consistent with elevated right atrial pressure, 10 mmHg. Aorta The aortic root size at the sinus of Valsalva is normal. There is mild aortic atherosclerosis. Left Ventricular Outflow Tract Name Value Normal LVOT 2D
[2022-06-19] VITALS (24 sets, daily range): BP systolic 111–135; BP diastolic 61–78; PULSE 69–115; RESP 16–28; TEMP 36–36.8; O2SAT 90–98
[2022-06-19] MEDS: LACTATED RINGERS 1,000 ML 75 ML IV CONT ×2 (02:32→18:12)
[2022-06-19] MEDS: IPRATROPIUM BR 0.02% INH SOLN 0.5 MG/2.5 ML VIAL INHALATION ×4 (02:57→20:09)
[2022-06-19] MEDS: ALBUTEROL SULFATE NEB 2.5 MG/3 ML INH INHALATION ×4 (02:57→20:09)
[2022-06-19 06:45] LABS: Basophils Absolute Auto 0.1 K/mm3 (0.0-0.1); Basophils Percent Auto 0.7 % (0.2-1.2); Eosinophils Absolute Auto 0.3 K/mm3 (0-0.3); Eosinophils Percent Auto 3.1 % (0-4.4); Hematocrit 32.3 % (37.0-47.0); Hemoglobin 10.4 g/dL (12.0-15.0); Immature Granulocyte Absolute 0.02 K/mm3 (0.00-0.031); Immature Granulocyte Percent A 0.2 % (0-0.5); Lymphocytes Absolute Auto 1.45 K/mm3 (0.9-3.2); Lymphocytes Percent Auto 17.2 % (18.3-44.2); Mean Corpuscular HGB Conc 32.2 g/dl (32-36); Mean Corpuscular Hemoglobin 29.4 pg (26-34); Mean Corpuscular Volume 91.2 fl (80-100); Mean Platelet Volume 9.1 fl (7.4-10.4); Monocytes Percent Auto 11.5 % (2.6-8.5); Neutrophils Absolute Auto 5.7 K/mm3 (1.3-6.7); Neutrophils Percent Auto 67.3 % (45.5-73.1); Platelet Count Result 184 k/mm3 (150-375); Red Blood Count 3.54 M/mm3 (4.2-5.4); Red Cell Distribution Width 15.6 % (11.5-14.5); White Blood Count 8.4 K/mm3 (4.5-10.0)
[2022-06-19 07:03] LABS: Anion Gap 2 mmol/L (8-16); Blood Urea Nitrogen 9 mg/dL (7-17); Calcium 8.5 mg/dL (8.4-10.2); Carbon Dioxide 33 mmol/L (22-30); Chloride 97 mmol/L (98-107); Estimated CRCL calculation 43 ml/min; Estimated Glomerular Filt Rate > 60; Glucose 100 mg/dL (65-110); Potassium 4.1 mmol/L (3.4-5.0); Sodium 132 mmol/L (137-145)
[2022-06-19] MEDS: LIPASE/AMYLASE/PROTEASE 12,000 UNITS CAP 1 CAP PO ×2 (08:00→18:11)
[2022-06-19] MEDS: FLUTICASONE/SALMETEROL 115-21 MCG INHALER 1 PUFF 2 PUFF INHALATION ×2 (08:34→20:09)
[2022-06-19] MEDS: polyethylene glycoL 3350 17 GM POWD.PACK PO (09:44)
[2022-06-19] MEDS: PANTOPRAZOLE 40 MG TABLET PO (09:44)
[2022-06-19] MEDS: HYDROcodone/acetaminophen (*CRX) 5-325 MG TABLET 1 TAB PO ×3 (09:44→18:10)
[2022-06-19] MEDS: SILVERGEL (ELTA) 45 ML 1 APPLIC TOPICAL (09:44)
[2022-06-19] MEDS: DULoxetine HCL 30 MG CAPSULE.DR PO (09:46)
[2022-06-19] MEDS: ENOXAPARIN 30 MG/0.3 ML SYRINGE SUB-Q (09:46)
[2022-06-19] MEDS: FAMOTIDINE 20 MG TABLET PO ×2 (09:46→18:10)
[2022-06-19] MEDS: guaiFENesin 12 HR 600 MG TABCR PO ×2 (09:46→21:07)
[2022-06-19] MEDS: calcium polycarbophiL 625 MG TABLET PO (09:47)
[2022-06-19] MEDS: ASPIRIN 81 MG ENTERIC TABLET PO (09:47)
[2022-06-19] MEDS: amLODIPine BESYLATE 5 MG TABLET 10 MG PO (09:47)
[2022-06-19] MEDS: POTASSIUM CHLORIDE 20 MEQ TABLET.ER 40 MEQ PO (09:48)
[2022-06-19] MEDS: ALPRAZolam (*CRX) 0.25 MG TABLET PO ×2 (09:48→18:10)
--- NOTE | 2022-06-19 10:10 | PC.NURSE ---
Verbal order from Dr. Franklin allowing pt to go to XR without nurse.
--- NOTE | 2022-06-19 11:43 | PM.IMPN ---
Progress Note: A&P Assessment and Plan (1) Chest pain: Code(s): R07.9 - Chest pain, unspecified Status: Acute Assessment and Plan: Likely related to aortic aneurysm. Lengthy discussion with patient and family patient is lucid today. Answers questions appropriately. Son is also present during the interview. Patient does not want have any surgery. No need to transfer at this time. Hospice evaluation and consult (2) Acute kidney injury: Code(s): N17.9 - Acute kidney failure, unspecified Status: Acute Assessment and Plan: Most likely due to dehydration -improved (3) Chronic respiratory failure with hypoxia, on home oxygen therapy: Code(s): J96.11 - Chronic respiratory failure with hypoxia; Z99.81 - Dependence on supplemental oxygen Status: Acute Assessment and Plan: She is on 3 to 4 liters nasal cannula at baseline, currently requiring 5 liters. Likely worsening chronic COPD (4) Dehydration: Code(s): E86.0 - Dehydration Status: Acute Assessment and Plan: Plan is as detailed above. (5) Wound of right foot: Code(s): S91.301A - Unspecified open wound, right foot, initial encounter Status: Acute Assessment and Plan: Empiric vancomycin, pending wound culture. X-rays of that foot are pending. Wound nurse consulted. (6) Chronic obstructive pulmonary disease: Code(s): J44.9 - Chronic obstructive pulmonary disease, unspecified Status: Acute Assessment and Plan: No evidence of acute exacerbation. Continue inhalers and nebulizers as needed. (7) Hypertension: Qualifiers: Hypertension type: essential hypertension Qualified Code(s): I10 - Essential (primary) hypertension Code(s): I10 - Essential (primary) hypertension Status: Chronic Assessment and Plan: Blood pressures have been soft but have responded to IV fluids. Antihypertensives currently on hold. Subjective Date/time seen: 06/19/22 11:43 No new complaints no chest pain Exam Const: General: healthy appearing Orientation/consciousness: patient oriented x3 Limitations: no limitations Neck: Neck: normal visual inspection and no meningeal signs Chest: Chest palpation & inspection: normal inspection of the chest Resp: Effort & Inspection: normal respiratory effort Auscultation: clear to auscultation bilaterally Cardio: Rate: regular rate Rhythm: regular rhythm GI: Auscultation: normal bowel sounds Skin: General skin exam: normal color Rashes: no rashes Neuro: General: patient oriented x3, moves all extremities, no meningeal signs and no focal motor deficits Speech: normal speech Extrem: General: normal to inspection and no clubbing, cyanosis or edema Psych: Mental Status: mental status grossly normal Affect: normal affect Attitude: cooperative Objective Data Vital Signs Vital Signs: Vital Signs - 24 hr 06/18/22 12:00 06/18/22 14:25 06/18/22 14:34 Temperature 98.4 F Pulse Rate 98 98 95 Respiratory Rate 18 18 18 Blood Pressure 102/54 L Pulse Oximetry 93 Oxygen Delivery Oxygen Flow Rate 06/18/22 12:00 06/18/22 12:00 06/18/22 14:00 Temperature Pulse Rate 91 99 94 Respiratory Rate Blood Pressure Pulse Oximetry 95 Oxygen Delivery Nasal Cannula Oxygen Flow Rate 5 06/18/22 16:00 06/18/22 16:00 06/18/22 16:00 Temperature 97.1 F L Pulse Rate 97 91 96 Respiratory Rate 18 Blood Pressure 96/55 L Pulse Oximetry 92 91 Oxygen Delivery Nasal Cannula Oxygen Flow Rate 5 06/18/22 19:57 06/18/22 19:50 06/18/22 20:01 Temperature Pulse Rate 98 98 99 Respiratory Rate 20 20 20 Blood Pressure Pulse Oximetry 96 Oxygen Delivery High Flow Nasal Cannula Oxygen Flow Rate 8 06/18/22 18:00 06/18/22 20:00 06/18/22 20:00 Temperature 97.1 F L Pulse Rate 92 100 99 Respiratory Rate 16 Blood Pressure 109/56 L Pulse Oximetr
[2022-06-19] MEDS: LIPASE/AMYLASE/PROTEASE 12,000 UNITS CAP 2 CAP PO ×2 (13:28→18:11)
[2022-06-19] MEDS: hydroCHLOROthiazide 25 MG TABLET PO (21:07)
[2022-06-19] MEDS: LOSARTAN POTASSIUM 100 MG TABLET PO (21:07)
[2022-06-19] MEDS: MIRTAZAPINE 7.5 MG TABLET PO (21:07)
[2022-06-20] VITALS (21 sets, daily range): BP systolic 92–139; BP diastolic 60–76; PULSE 58–122; RESP 16–24; TEMP 36.1–36.8; O2SAT 89–97
[2022-06-20] MEDS: IPRATROPIUM BR 0.02% INH SOLN 0.5 MG/2.5 ML VIAL INHALATION ×3 (02:24→14:51)
[2022-06-20] MEDS: ALBUTEROL SULFATE NEB 2.5 MG/3 ML INH INHALATION ×3 (02:24→14:51)
[2022-06-20 05:10] LABS: Estimated CRCL calculation 49 ml/min; Estimated Glomerular Filt Rate > 60
[2022-06-20] MEDS: LACTATED RINGERS 1,000 ML 75 ML IV CONT (06:16)
--- NOTE | 2022-06-20 09:00 | PC.NURSE ---
Resting in bed with eyes open. Answering questions in full sentences. O2 sat 85% on 15L via high flow nasal cannual. Respiratory Therapist at bedside. Dr. Grant made aware. New orders noted for Airvo prn.
[2022-06-20] MEDS: SILVERGEL (ELTA) 45 ML 1 APPLIC TOPICAL (09:30)
[2022-06-20] MEDS: polyethylene glycoL 3350 17 GM POWD.PACK PO (09:30)
[2022-06-20] MEDS: HYDROcodone/acetaminophen (*CRX) 5-325 MG TABLET 1 TAB PO ×3 (09:30→17:21)
[2022-06-20] MEDS: PANTOPRAZOLE 40 MG TABLET PO (09:30)
[2022-06-20] MEDS: ALPRAZolam (*CRX) 0.25 MG TABLET PO ×2 (09:31→17:21)
[2022-06-20] MEDS: LIPASE/AMYLASE/PROTEASE 12,000 UNITS CAP 1 CAP PO (09:31)
[2022-06-20] MEDS: guaiFENesin 12 HR 600 MG TABCR PO ×2 (09:31→20:26)
[2022-06-20] MEDS: DULoxetine HCL 30 MG CAPSULE.DR PO (09:31)
[2022-06-20] MEDS: FAMOTIDINE 20 MG TABLET PO ×2 (09:31→17:22)
[2022-06-20] MEDS: POTASSIUM CHLORIDE 20 MEQ TABLET.ER 40 MEQ PO (09:31)
[2022-06-20] MEDS: ENOXAPARIN 30 MG/0.3 ML SYRINGE SUB-Q (09:31)
[2022-06-20] MEDS: amLODIPine BESYLATE 5 MG TABLET 10 MG PO (09:32)
[2022-06-20] MEDS: calcium polycarbophiL 625 MG TABLET PO (09:32)
[2022-06-20] MEDS: ASPIRIN 81 MG ENTERIC TABLET PO (09:32)
[2022-06-20] MEDS: LIPASE/AMYLASE/PROTEASE 12,000 UNITS CAP 2 CAP PO ×2 (13:13→17:22)
--- NOTE | 2022-06-20 13:14 | PM.IMPN ---
Progress Note: A&P Assessment and Plan (1) Chest pain: Code(s): R07.9 - Chest pain, unspecified Status: Acute Assessment and Plan: Likely related to aortic aneurysm. Lengthy discussion with patient and family patient is lucid today. Answers questions appropriately. Son is also present during the interview. Patient does not want have any surgery. No need to transfer at this time. Hospice evaluation and consult (2) Acute kidney injury: Code(s): N17.9 - Acute kidney failure, unspecified Status: Acute Assessment and Plan: Most likely due to dehydration -improved (3) Chronic respiratory failure with hypoxia, on home oxygen therapy: Code(s): J96.11 - Chronic respiratory failure with hypoxia; Z99.81 - Dependence on supplemental oxygen Status: Acute Assessment and Plan: She is on 3 to 4 liters nasal cannula at baseline, currently requiring 5 liters. Likely worsening chronic COPD (4) Dehydration: Code(s): E86.0 - Dehydration Status: Acute Assessment and Plan: Plan is as detailed above. (5) Wound of right foot: Code(s): S91.301A - Unspecified open wound, right foot, initial encounter Status: Acute Assessment and Plan: Empiric vancomycin, pending wound culture. X-rays of that foot are pending. Wound nurse consulted. (6) Chronic obstructive pulmonary disease: Code(s): J44.9 - Chronic obstructive pulmonary disease, unspecified Status: Acute Assessment and Plan: No evidence of acute exacerbation. Continue inhalers and nebulizers as needed. (7) Hypertension: Qualifiers: Hypertension type: essential hypertension Qualified Code(s): I10 - Essential (primary) hypertension Code(s): I10 - Essential (primary) hypertension Status: Chronic Assessment and Plan: Blood pressures have been soft but have responded to IV fluids. Antihypertensives currently on hold. Subjective Date/time seen: 06/20/22 13:14 no issues Exam Const: General: healthy appearing Orientation/consciousness: patient oriented x3 Limitations: no limitations Neck: Neck: normal visual inspection and no meningeal signs Chest: Chest palpation & inspection: normal inspection of the chest Resp: Effort & Inspection: normal respiratory effort Auscultation: clear to auscultation bilaterally Cardio: Rate: regular rate Rhythm: regular rhythm GI: Auscultation: normal bowel sounds Skin: General skin exam: normal color Rashes: no rashes Neuro: General: patient oriented x3, moves all extremities, no meningeal signs and no focal motor deficits Speech: normal speech Extrem: General: normal to inspection and no clubbing, cyanosis or edema Psych: Mental Status: mental status grossly normal Affect: normal affect Attitude: cooperative Objective Data Vital Signs Vital Signs: Vital Signs - 24 hr 06/19/22 14:00 06/19/22 15:54 06/19/22 16:02 Temperature Pulse Rate 99 97 101 H Respiratory Rate 22 H 20 Blood Pressure Pulse Oximetry Oxygen Delivery Oxygen Flow Rate 06/19/22 16:00 06/19/22 16:00 06/19/22 18:00 Temperature 96.8 F L Pulse Rate 98 109 H 93 Respiratory Rate 28 H Blood Pressure 135/68 Pulse Oximetry 95 Oxygen Delivery Oxygen Flow Rate 06/19/22 16:00 06/19/22 20:12 06/19/22 20:13 Temperature Pulse Rate 102 H Respiratory Rate 16 Blood Pressure Pulse Oximetry 92 92 Oxygen Delivery High Flow Nasal Cannula High Flow Nasal Cannula Oxygen Flow Rate 8 11 06/19/22 20:27 06/19/22 20:00 06/19/22 20:00 Temperature 97.6 F Pulse Rate 108 H 100 69 Respiratory Rate 16 20 Blood Pressure 123/75 Pulse Oximetry 97 Oxygen Delivery Oxygen Flow Rate 06/19/22 20:00 06/19/22 22:00 06/19/22 23:51 Temperature 97.5 F L Pulse Rate 108 H 98 87 Respiratory Rate 16 16 Blood Pressure 124/63 Pulse Oximetry 92 95 Oxygen
[2022-06-20] MEDS: FUROSEMIDE INJ 40 MG/4 ML VIAL IV PUSH (14:43)
[2022-06-20] MEDS: LOSARTAN POTASSIUM 100 MG TABLET PO (20:26)
[2022-06-20] MEDS: MIRTAZAPINE 7.5 MG TABLET PO (20:26)
[2022-06-20] MEDS: hydroCHLOROthiazide 25 MG TABLET PO (20:26)
[2022-06-20 23:50] LABS: Vancomycin Trough 6.9 ug/mL (10.0-20.0)
[2022-06-21] VITALS (17 sets, daily range): BP systolic 99–118; BP diastolic 54–78; PULSE 92–115; RESP 18–28; TEMP 36–36.6; O2SAT 90–97
[2022-06-21] MEDS: ALBUTEROL SULFATE NEB 2.5 MG/3 ML INH INHALATION ×3 (01:46→13:45)
[2022-06-21] MEDS: IPRATROPIUM BR 0.02% INH SOLN 0.5 MG/2.5 ML VIAL INHALATION ×3 (01:46→13:46)
[2022-06-21] MEDS: FLUTICASONE/SALMETEROL 115-21 MCG INHALER 1 PUFF 2 PUFF INHALATION (08:43)
[2022-06-21] MEDS: polyethylene glycoL 3350 17 GM POWD.PACK PO (09:52)
[2022-06-21] MEDS: SILVERGEL (ELTA) 45 ML 1 APPLIC TOPICAL (09:52)
[2022-06-21] MEDS: DULoxetine HCL 30 MG CAPSULE.DR PO (09:53)
[2022-06-21] MEDS: ENOXAPARIN 30 MG/0.3 ML SYRINGE SUB-Q (09:53)
[2022-06-21] MEDS: ASPIRIN 81 MG ENTERIC TABLET PO (09:53)
[2022-06-21] MEDS: calcium polycarbophiL 625 MG TABLET PO (09:53)
[2022-06-21] MEDS: POTASSIUM CHLORIDE 20 MEQ TABLET.ER 40 MEQ PO (09:53)
[2022-06-21] MEDS: amLODIPine BESYLATE 5 MG TABLET 10 MG PO (09:53)
[2022-06-21] MEDS: PANTOPRAZOLE 40 MG TABLET PO (09:53)
[2022-06-21] MEDS: guaiFENesin 12 HR 600 MG TABCR PO (09:53)
[2022-06-21] MEDS: FAMOTIDINE 20 MG TABLET PO ×2 (09:53→17:30)
[2022-06-21] MEDS: ALPRAZolam (*CRX) 0.25 MG TABLET PO ×2 (09:56→17:30)
[2022-06-21] MEDS: HYDROcodone/acetaminophen (*CRX) 5-325 MG TABLET 1 TAB PO ×3 (09:57→17:30)
[2022-06-21] MEDS: LIPASE/AMYLASE/PROTEASE 12,000 UNITS CAP 2 CAP PO ×2 (12:16→17:30)
--- NOTE | 2022-06-21 14:38 | PM.DS ---
DS: Admitting Diagnosis Discharge Date June 21, 2022 Admitting Diagnosis Chest pain Aortic aneurysm DS: Discharge Diagnosis Discharge Diagnosis (1) Chest pain: Code(s): R07.9 - Chest pain, unspecified Status: Acute Assessment and Plan: Likely related to aortic aneurysm. Lengthy discussion with patient and family patient is lucid today. Answers questions appropriately. Son is also present during the interview. Patient does not want have any surgery. No need to transfer at this time. Hospice evaluation and consult (2) Acute kidney injury: Code(s): N17.9 - Acute kidney failure, unspecified Status: Acute Assessment and Plan: Most likely due to dehydration -improved (3) Chronic respiratory failure with hypoxia, on home oxygen therapy: Code(s): J96.11 - Chronic respiratory failure with hypoxia; Z99.81 - Dependence on supplemental oxygen Status: Acute Assessment and Plan: She is on 3 to 4 liters nasal cannula at baseline, currently requiring 5 liters. Likely worsening chronic COPD (4) Dehydration: Code(s): E86.0 - Dehydration Status: Acute Assessment and Plan: Plan is as detailed above. (5) Wound of right foot: Code(s): S91.301A - Unspecified open wound, right foot, initial encounter Status: Acute Assessment and Plan: Empiric vancomycin, pending wound culture. X-rays of that foot are pending. Wound nurse consulted. (6) Chronic obstructive pulmonary disease: Code(s): J44.9 - Chronic obstructive pulmonary disease, unspecified Status: Acute Assessment and Plan: No evidence of acute exacerbation. Continue inhalers and nebulizers as needed. (7) Hypertension: Qualifiers: Hypertension type: essential hypertension Qualified Code(s): I10 - Essential (primary) hypertension Code(s): I10 - Essential (primary) hypertension Status: Chronic Assessment and Plan: Blood pressures have been soft but have responded to IV fluids. Antihypertensives currently on hold. DS: Summary Hospital Course Hospital Course: Patient is an 86-year-old female came chest pain. 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 Lengthy discussion with patient and family and decision was to make the patient comfortable as she does not want have any extensive procedures or surgeries done. She was previously on hospice prior to coming in the hospital. Nonetheless patient will be discharged back to facility on hospice. Time Spent with Patient Time attestation: Total time spent providing and/or coordinating discharge services: Exam Const: General: healthy appearing Orientation/consciousness: patient oriented x3 Limitations: no limitations Neck: Neck: normal visual inspection and no meningeal signs Chest: Chest palpation & inspection: normal inspection of the chest Resp: Effort & Inspection: normal respiratory effort Auscultation: clear to auscultation bilaterally Cardio: Rate: regular rate Rhythm: regular rhythm GI: Auscultation: normal bowel sounds Skin: General skin exam: normal color Rashes: no rashes Neuro: General: patient oriented x3, moves all extremities, no meningeal signs and no focal motor deficits Speech: normal speech Extrem: General: normal to inspection and no clubbing, cyanosis or edema Psych: Mental Status: mental status grossly normal Affect: normal affect Attitude: cooperative DS: Data Data Completed and Pending Labs on day of discharge: Labs from last 24 hours 06/20/22 23:03 Vancomycin Trough 6.9 L Discharge Plan Discharge Attending physician on discharge: Jaleel Grant Discharging Clinician: Jaleel Grant Patient Disposition: SNF Activity: no preference Diet: as tolerated Patient Instructions: Antibiotic Form Stand Alone Forms: General Discharge I
== END 2022-06-21 18:26 | disposition hospice, home (50) | DRG 300 ==
LOC: ANHED 17:21 → ANHIMU 19:37
PROVIDERS: Physician Assistant; Admitting Provider Chiropractor; Emergency Provider Emergency Medicine; Visit Provider Chiropractor
DX: I71.23 Aneurysm of the descending thoracic aorta, without rupture (principal); E86.0 Dehydration; N17.9 Acute kidney failure, unspecified; J96.11 Chronic respiratory failure with hypoxia; J44.9 Chronic obstructive pulmonary disease, unspecified; S91.301A Unspecified open wound, right foot, initial encounter; I10 Essential (primary) hypertension; Z99.81 Dependence on supplemental oxygen; E78.5 Hyperlipidemia, unspecified; F41.9 Anxiety disorder, unspecified; F03.90 Unspecified dementia, unspecified severity, without behavioral disturbance, psychotic disturbance, mood disturbance, and anxiety; F32.A Depression, unspecified; G89.29 Other chronic pain; M54.9 Dorsalgia, unspecified; K21.9 Gastro-esophageal reflux disease without esophagitis; Z20.822 Contact with and (suspected) exposure to COVID-19; Z87.891 Personal history of nicotine dependence; Z79.51 Long term (current) use of inhaled steroids; Z79.82 Long term (current) use of aspirin; Z79.899 Other long term (current) drug therapy; Z88.0 Allergy status to penicillin; Z88.1 Allergy status to other antibiotic agents; Z82.49 Family history of ischemic heart disease and other diseases of the circulatory system; Z80.0 Family history of malignant neoplasm of digestive organs; Z80.8 Family history of malignant neoplasm of other organs or systems
CPT/HCPCS: 36415; 71045; 71046; 71250; 71275; 73630; 80048; 80053; 80202; 82565; 83690; 83735; 84443; 84484; 85025; 85027; 85380; 85610; 85730; 87070; 87205; 87636; 93005; 93306; 94640; 96361; 96372; 96374; 99285; A9270; G0378; J1650; J1940; J3370; J7030; J7120; Q9967